=== PATIENT | male | born 2000 | race African-American/Black ===

== ENCOUNTER 2024-12-29 13:31 | Emergency (ER) | payer SELFPAY ==
[2024-12-29 13:35] VITALS: BP 141/74; PULSE 107; RESP 20; TEMP 36.1; O2SAT 97
--- NOTE | 2024-12-29 14:09 | ED.GENADULT ---
HPI - General Adult General Chief complaint: Unspecified Stated complaint: Right foot pain from playing basketball last month Time Seen by Provider: 12/29/24 13:48 Source: patient Mode of arrival: ambulatory Limitations: no limitations History of Present Illness HPI narrative: This is a 24 year old male that presents to the ER for right ankle pain. Reports he rolled the ankle one month ago. He was seen and have imaging that did not show a fracture. Reports he is now able to ambulate without pain. He needs a note to go back to work. Review of Systems Review of Systems: All systems reviewed & are unremarkable except as noted in HPI and below PMFSH Past Medical History Medical History (Updated 12/29/24 @ 14:13 by Blanca Salazar PA-C) No active medical problems Exam Narrative: GENERAL: Well-appearing, well-nourished, and in no acute distress. HEAD: Normocephalic, atraumatic. EYES: EOMI. EXTREMITIES: Normal range of motion. No edema. Normal DP pulse. Normal sensation SKIN: Warm, dry, no rash. NEURO: No focal deficits. Alert and oriented x3. PSYCH: Normal mood and affect Course Vital Signs Vital signs: Vital Signs Temperature 97.0 F L 12/29/24 13:35 Pulse Rate 107 H 12/29/24 13:35 Respiratory Rate 20 12/29/24 13:35 Blood Pressure 141/74 H 12/29/24 13:35 Pulse Oximetry 97 12/29/24 13:35 Oxygen Delivery Room Air 12/29/24 13:35 Temperature 97.0 F L 12/29/24 13:35 Pulse Rate 107 H 12/29/24 13:35 Respiratory Rate 20 12/29/24 13:35 Blood Pressure 141/74 H 12/29/24 13:35 Pulse Oximetry 97 12/29/24 13:35 Oxygen Delivery Room Air 12/29/24 13:35 Medical Decision Making [facility] Narrative Medical decision making narrative: Patient presents the emergency department after an ankle injury 1 month ago. Reports he was seen at another facility and had imaging which did not show a fracture, diagnosed with a sprain. Reports he is feeling better, able to ambulate without pain. He is neurovascularly intact. Needs a note to return to work. This will be given. Vital Signs Vital Signs: Vital Signs Temperature 97.0 F L 12/29/24 13:35 Pulse Rate 107 H 12/29/24 13:35 Respiratory Rate 20 12/29/24 13:35 Blood Pressure 141/74 H 12/29/24 13:35 Pulse Oximetry 97 12/29/24 13:35 Oxygen Delivery Room Air 12/29/24 13:35 Temperature 97.0 F L 12/29/24 13:35 Pulse Rate 107 H 12/29/24 13:35 Respiratory Rate 20 12/29/24 13:35 Blood Pressure 141/74 H 12/29/24 13:35 Pulse Oximetry 97 12/29/24 13:35 Oxygen Delivery Room Air 12/29/24 13:35 Critical Care Time Critical Care Time Critical Care Time: No Discharge Plan Discharge Clinical Impression: Ankle sprain and strain Patient Disposition: Home Condition: Stable Instructions: Ankle Sprain (ED) Additional Instructions: Return to the ER if you experience fever, redness and swelling of your extremity, numbness or any other symptoms that are concerning to you Follow up with your doctor for further care. Patient Language: Telugu Follow-up/Referrals: Rodo Caicedo MD [Physician] - PHYSICIAN,SOUS CHEF KITCHEN MANAGER [Primary Care Provider] - Stand Alone Forms: Work/School Release IP
[2024-12-29 14:24] VITALS: BP 132/80; PULSE 72; RESP 16; TEMP 36.6; O2SAT 100
== END 2024-12-29 14:25 | disposition home or self-care (01) ==
LOC: ANHED 14:19
PROVIDERS: Emergency Provider Physician Assistant
DX: S93.401A Sprain of unspecified ligament of right ankle, initial encounter (principal); X58.XXXA Exposure to other specified factors, initial encounter; Y93.67 Activity, basketball
CPT/HCPCS: 99282

== ENCOUNTER 2025-07-02 11:43 | Emergency (ER) | payer SELFPAY ==
--- NOTE | 2025-07-02 11:55 | ED.GENADULT ---
HPI - General Adult General Chief complaint: Wound/Laceration Stated complaint: ear lac Time Seen by Provider: 07/02/25 11:55 History of Present Illness HPI narrative: 25-year-old male presents emergency department concerned about laceration to his left earlobe. Patient states that over 12 hours ago his hearing was pulled out of his earlobe on the left. It is been slightly green old larger the puncture wound itself over the last couple months. Denies any pain Discharged on systemic symptoms of fevers and chills. Related Data Allergies Allergy/AdvReac Type Severity Reaction Status Date / Time No Known Allergies Allergy Verified 07/02/25 12:03 Review of Systems Review of Systems: All systems reviewed & are unremarkable except as noted in HPI and below PMFSH Past Medical History Medical History (Updated 07/02/25 @ 12:19 by Elder Simental MD) No active medical problems Exam Narrative: EXAMINATION OF ORGAN SYSTEMS/BODY AREAS: Constitutional: Vital signs per nursing GENERAL:[No acute distress, non-toxic appearing.] HEAD: Normal with no signs of head trauma. ENT: There is a scar the earlobe on the left. The distal portion of the earlobe is slight skin avulsion. There is granulation tissue is nontender. it is not amenable to approximation with sutures. LUNGS: Nonlabored breathing. SKIN: [No rashes or lesions.] NEURO: [Alert. No gross focal sensory or strength deficits.] PSYCH: Normal affect Course Vital Signs Vital signs: Vital Signs Temperature 36.4 C 07/02/25 11:57 Pulse Rate 105 H 07/02/25 11:57 Respiratory Rate 16 07/02/25 11:57 Blood Pressure 145/89 H 07/02/25 11:57 Pulse Oximetry 100 07/02/25 11:57 Temperature 36.4 C 07/02/25 11:57 Pulse Rate 105 H 07/02/25 11:57 Respiratory Rate 16 07/02/25 11:57 Blood Pressure 145/89 H 07/02/25 11:57 Pulse Oximetry 100 07/02/25 11:57 MDM Differential Diagnosis Differential Diagnosis: 25-year-old male's presents emergency department with avulsed piece of skin of left earlobe that is just less than 2-3 mm. Discussed with the patient given the amount of time the scar tissue in the surrounding area secondary to micro trauma over the previous month it is not amenable to approximately 7 sutures and will heal by secondary intention and he will have a scar long-term. I will prescribe him bacitracin ointment for the wound itself although there is no evidence of infection currently. Otherwise instructed to follow-up with primary care doctor in a week for wound to be re-evaluated return sooner for any new or concerning symptoms. All questions answered discharged in stable condition Discharge Plan Discharge Clinical Impression: Visit for wound check Patient Disposition: Home Condition: Stable Instructions: Acute Wounds (ED) Patient Language: Monegasque Prescriptions: New bacitracin 500 unit/gram ointment 1 applic topical Q8H Qty: 14 1RF Follow-up/Referrals: Liza Campbell DO [Physician, Family Practice] - 1 Week UNKNOWN,DOCTOR [Non-Staff] Time of Disposition: 12:19
[2025-07-02 11:57] VITALS: BP 145/89; PULSE 105; RESP 16; TEMP 36.4; O2SAT 100
--- OUTSIDE RECORDS SUMMARY | 2025-07-02 12:13 | XMS_ITS | Clinical Summary ---
Author Organization [facility] Address [address] [place] [id number] Care Team Providers Care Boiler Coverer Name Role Phone None, Provider MD Primary Care Provider Unavaila ble Allergies No known active allergies Social History Tobacco Use Types Packs/Day Years Used Date Smoking Tobacco: Never Smokeless Tobacco: Never Tobacco Cessation:Counseling Given: Not Answered Alcohol Use Standard Drinks/Week Comments Yes 141.7 (1 standard drink = 0.6 oz pure alcohol) Sex and Gender Information Value Date Recorded Sex Assigned at Male 11/29/2024 12:15 PM CDT Legal Sex Male 11:48 AM CDT Gender Identity Not on file Sexual Orientation Not on file Last Filed Vital Signs Vital Sign Reading Time Taken Comments Blood Pressure 149/84 11/29/2024 1:49 PM CDT Pulse 105 11/29/2024 1:49 PM CDT Temperature 37.1 C (98.8 F) 11/29/2024 11:52 AM CDT Respiratory Rate 18 11/29/2024 11:52 AM CDT Oxygen Saturation 98% 11/29/2024 1:49 PM CDT Inhaled Oxygen Concentration - - Weight 59 kg (130 lb) 11/29/2024 11:52 AM CDT Height 177.8 cm (5' 10) 11/29/2024 11:52 AM CDT Body Mass Index 18.65 11/29/2024 11:52 AM CDT Plan of Treatment Health Maintenance Due Date Last Done Comments Annual Physical 2005 HPV Vaccines (1 - Male 3-dose series) 2017 Meningococcal B Vaccine (1 of 2 - Standard) 2018 Hepatitis C 2020 DTaP, Tdap and Td Vaccines (7 - Td or Tdap) 03/30/2023 03/30/2013, 10/13/2006, 08/30/2003, Additional history exists COVID-19 Vaccine ( season) 2025 Influenza Adult (#1) 2025 Hepatitis B Vaccines Completed 2002, 2002, 2002 Pneumococcal Vaccine: Pediatrics (0 to 5 Years) and At-Risk Patients (6 to 49 Years) Aged Out 07/31/2004, 01/20/2003, 2002, Additional history exists No longer eligible based on patient's age to complete this topic Hepatitis A Vaccines Completed 07/25/2005, 07/27/19 05 Meningococcal Vaccine Completed 07/13/2020, 013 RSV Immunizations Under 20 Months Aged Out No longer eligible based on patient's age to complete this topic Care Teams Boiler Coverer Relationship Specialty Start Date End Date None, Provider, MD PCP - General UNKNOWN PHYSICIAN SPECIALTY 11/29/24
--- OUTSIDE RECORDS SUMMARY | 2025-07-02 12:13 | XMS_ITS | Clinical Summary ---
Author Organization [facility] Address [address] [place] [id number] Care Team Providers Care Auditor Name Role Phone No, Physician Primary Care Provider [phone] Allergies No known active allergies Medications cefdinir (OMNICEF) 300 mg capsule Take 1 capsule (300 mg total) by mouth 2 (two) times a day 20 capsule 11/21/2020 Active ibuprofen (ADVIL,MOTRIN) 600 mg tablet Take 1 tablet (600 mg total) by mouth every 6 (six) hours as needed for pain 30 tablet 06/12/2021 Active acetaminophen (TYLENOL) 500 mg tablet Take 1-2 tablets (500-1,000 mg total) by mouth every 6 (six) hours as needed for pain 30 tablet 06/12/2021 Active phenoL (CHLORASEPTIC) 1.4 % aerosol,spray Apply 5 mL (5 sprays total) to the mouth or throat 4 (four) times a day 177 mL 06/12/2021 Active Medical History Medical History Date Comments Allergies Social History Tobacco Use Types Packs/Day Years Used Date Smoking Tobacco: Never Smokeless Tobacco: Never Alcohol Use Standard Drinks/Week Comments Yes 0 (1 standard drink = 0.6 oz pur e alcohol) socially Personal Safety Answer Date Recorded Have you ever been in or are you currently in a harmful physical or emotional relationship or is someone making you feel afraid or unsafe? Denies 12/06/2024 Sex and Gender Information Value Date Recorded Sex Assigned at Not on file Legal Sex Male 10:04 AM LAWN SPECIALIST Gender Identity Not on file Sexual Orientation Not on file Last Filed Vital Signs Vital Sign Reading Time Taken Comments Blood Pressure 126/80 12/06/2024 1:09 PM CDT Pulse 108 12/06/2024 1:09 PM CDT Temperature 37.7 C (99.9 F) 12/06/2024 1:09 PM CDT Respiratory Rate 16 12/06/2024 1:09 PM CDT Oxygen Saturation 98% 12/06/2024 1:09 PM CDT Inhaled Oxygen Concentration - - Weight 76 kg (167 lb 8.8 oz) 12/06/2024 1:09 PM CDT Height 177.8 cm (5' 10) 12/06/2024 1:09 PM CDT Body Mass Index 24.04 12/06/2024 1:09 PM CDT Plan of Treatment Health Maintenance Due Date Last Done Comments Depression Screening 2002 Hepatitis C Screening 2002 HPV Vaccines (1 - Male 3-dos e series) 2017 Meningococcal B Vaccine (1 o f 2 - Standard) 2018 Regular Well Visit/Exam 18-64 2020 DTaP/Tdap/Td Vaccine (7 - Td or Tdap) 03/30/2023 03/30/2013, 10/13/2006, 08/30/2003, Additional history exists Influenza Vaccine (#1) 2025 Hepatitis B Screening Completed 2002 , 2002, 2002, Additional history exists Pneumococcal vaccine <65 Completed 005, 01/20/2003, 2002, Additional history exists Varicella Vaccines Completed 10/13/2006, 04/13/2003 Insurance [facility] [employer] Care Teams Auditor Relationship Specialty Start Date End Date No, Physician PCP - General 11/20/20
--- OUTSIDE RECORDS SUMMARY | 2025-07-02 12:13 | XMS_ITS | Clinical Summary ---
Author Organization [facility] Address [address] [place] [address] Care Team Providers Care Physical Medicine Physician Name Role Phone Unavailable Primary Care Provider Unavailabl e Source Comments [facility],non-owned Affiliates and Associated Physician Practices is amultiple site organization consisting of ambulatory clinics and hospital sitesin [place], [place], [place] and [place]. This disclosure is being madepursuant to the Care Everywhere program and may not contain all information available regarding this patient. Last updated 18.[facility] Allergies No known active allergies Medications * Be aware that medications may not be up to date on this document. Alwaysverify current medications with the patient. clotrimazole (LOTRIMIN AF) 1 % cream Apply to affected area 2 times daily On feet 60 g 07/13/2020 Active Active Problems Problem Noted Date Diagnosed Date Tinea pedis of both feet 07/13/2020 Assessment & Plan (07/13/2020 3:05 PM CEREAL SUPERVISOR): Tinea pedis on feet b/l, prescribed lotrimin AF to be used and to return if not improving. 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 Patient does not want further work-up unless absolutely necessary. Well child check 01/21/2018 Assessment & Plan (07/13/2020 3:07 PM CEREAL SUPERVISOR): Tariq Guerra is here for his adolescent well child check and has normal growth with good interval weight gain and normal development. Immunizations up to date; refused HPV and Flu due to mother not wanting him to get them, discussed he may make own decisions and risks of not vaccinating up to and including . Mother did not want to discuss. Refused STI/STD testing; ordered Lipids PHQ-9: Positive; discussed with Tariq who states mostly due to sleep routine and staying up late. Upset as was fired recently as well. Age appropriate anticipatory guidance provided Return for next well child check; sooner if concerns arise. Assessment & Plan (01/21/2018 9:43 AM CDT): Tariq Guerra is here for his adolescent well child check and has normal growth with good interval weight gain and normal development. Immunizations up to date,refusing hpv Pt moving to [place] to live with dad ,mom could not get appt at her regular pmd so brought him here for [facility] for school before leaving Dental referral for prevention Age appropriate anticipatory guidance provided Return for next well child check; sooner if concerns arise. Resolved Problems Problem Noted Date Diagnosed Date Resolved Date Behavior concern 01/21/2018 07/13/2020 Assessment & Plan (01/21/2018 9:46 AM CDT): According to mom and pt he does not pay attention in school because he just does not want to He is moving to [place] to live with dad ,mom thinks fresh start might help I talked to him at length about importance of school he seems to agree Immunizations Immunization Administration Dates Next Due DTAP/HEP B/IPV 2002 DTaP VACCINE IM (6wk-6yrs) 10/13/2006,,01/20/2003, 2 HEP A PEDS 2 DOSE 07/25/2005,07/27/2004 HEP B VACCINE, PED/ADOL 2002,2002 HIB-PRP-T 4 DOSE 08/30/2003, 3,2002, 2 MENINGOCOCAL MENINGITIS 03/30/2013 MENINGOCOCCAL ACWY (MCV4P) VAC IM 07/13/2020 MMR 04/13/2003 MMR/VARICELLA 10/13/2006 PNEUMOCOCCAL PCV7 CONJ, PEDS 07/31/2004, 01/20/2003,2002, 2 POLIO IPV 10/13/2006,01/20/2003,2002 TDAP (7yrs+) 03/30/2013 VARICELLA 04/13/2003 Social History Tobacco Use Types Packs/Day Years Used Date Smoking Tobacco: Every Day Cigarettes Smokeless Tobacco: Never Tobacco Cessation:Ready to Q uit: No Alcohol Use Standard Drinks/Week Comments Yes 0 (1 standard drink = 0.6 oz pur e alcohol) Sex and Gender Information Value Date Recorded Sex Assigned at Not on file Legal Sex Male 1:45 PM CDT Gender Identity Not on file Sexual Orientation Not on file Last Filed Vital Signs Vital Sign Reading Time Taken Comments Blood Pressure 152/98 03/08/2024 7:11 PM CDT Pulse 111 03/08/2024 7:11 PM CDT Temperature 36.9 C (98.4 F) 03/08/2024 7:11 PM CDT Respiratory Rate 18 03/08/2024 7:11 PM CDT Oxygen Saturation 94% 03/08/2024 7:11 PM CDT Inhaled Oxygen Concentration - - Weight 59 kg (130 lb) 12/29/2021 9:43 AM CDT Height 175.3 cm (5' 9) 12/29/2021 9:43 AM CDT Body Mass Index 19.2 12/29/2021 9:43 AM CDT Plan of Treatment Health Maintenance Due Date Last Done Comments PNEUMOCOCCAL VACCINE (1 of 1 - PPSV23, PCV20, or PCV21) 2008 07/31/2004, 01/20/2003, 2002, Additional history exists HIV SCREENING 2017 HPV VACCINE (1 - Male 3-dose series) 2017 MENINGOCOCCAL (Group B) VACC INE SHARED DECISION-MAKING (1 of 2 - Standard) 2018 HEPATITIS C SCREENING 03/21/2020 DTAP/TDAP/TD VACCINES (7 - T d or Tdap) 03/30/2023 03/30/2013, 10/13/2006, 08/30/2003, Additional history exists DEPRESSION SCREENING 07/07/2024 07/13/2020, 01/22/20 COVID-19 VACCINE (2 - 2024-2 6 season) 2025 07/21/2021 INFLUENZA VACCINE (#1) 2025 ZOSTER VACCINE (1 of 2) 2052 HEPATITIS B VACCINE Completed 2002, 2002, 2002 HIB VACCINE Completed 08/30/2003, 01/04, 2002, Additional history exists MENINGOCOCCAL GROUPS A/C/Y/W VACCINE Completed 07/13/2020, 03/30/[address] [facility] [place] MEDICAID HOME STATE HE[employer] PLAN [facility] [place] [id number]
== END 2025-07-02 12:34 | disposition home or self-care (01) ==
PROVIDERS: Emergency Provider Emergency Medicine
DX: S01.312A Laceration without foreign body of left ear, initial encounter (principal); X58.XXXA Exposure to other specified factors, initial encounter
CPT/HCPCS: 99283